=== PATIENT | female | born 1965 | race American Indian/Alaskan Native ===

== ENCOUNTER 2017-03-09 17:28 | Emergency (ER) | payer OTHER ==
[2017-03-09 18:16] LABS: BASO % 0.2 % (0.0-2.0); EOS % 0.1 % (0.0-4.0); HEMATOCRIT 40.8 % (34.0-47.0); LYMPH # 2.2 K/uL (1.0-4.3); LYMPH % 35.6 % (20.0-40.0); MEAN CELL VOLUME 73.6 fL (81.0-99.0); MEAN CORPUSCULAR HEMOGLOBIN 22.7 pg (27.0-31.0); MEAN CORPUSCULAR HGB CONC 30.9 g/dL (33.0-37.0); MONO # 0.4 K/uL (0.0-0.8); MONO % 6.8 % (0.0-10.0); NRBC % 0.1 % (0.0-2.0); RED CELL DISTRIBUTION WIDTH 15.2 % (11.5-14.5); WHITE BLOOD COUNT 6.1 K/uL (4.8-10.8)
[2017-03-09 18:23] LABS: CHLORIDE 97 mmol/L (98-107)
[2017-03-09 18:24] LABS: POTASSIUM 3.5 mmol/L (3.6-5.2); SODIUM 138 mmol/L (132-148)
[2017-03-09 18:26] LABS: ALB/GLOB RATIO 1.3 (1.0-2.1); ALKALINE PHOSPHATASE 91 U/L (38-126); ALT/SGPT 22 U/L (9-52); AST/SGOT 33 U/L (14-36); BILIRUBIN,TOTAL 0.5 mg/dL (0.2-1.3); BLOOD UREA NITROGEN 10 mg/dL (7-17); CARBON DIOXIDE 31 mmol/L (22-30); GFR AFRICAN-AMERICAN > 60
[2017-03-09 18:27] LABS: CALCIUM 9.1 mg/dl (8.6-10.4); GLUCOSE,RANDOM 85 mg/dL (65-105)
[2017-03-09] MEDS ORDERED: Iodixanol 320 MG/ML 100 ML BOTTLE IV ONE (23:10)
[2017-03-10 00:17] VITALS: O2SAT 98
--- NOTE | 2017-03-10 00:24 | C.PDOC ---
History Of Present Illness Pt states that she ran out of her BP medication (Clonidine 0.3mg bid) 3 days ago. Time Seen by Provider: 03/09/17 20:04 Chief Complaint (Nursing): High Blood Pressure History Per: Patient Onset/Duration Of Symptoms: Days (3) Current Symptoms Are (Timing): Worse Associated Symptoms: Headache, Other (Back pain) Severity: Severe Exacerbating Factor(s): Pos: Recently Missed Doses Of Medication, Recent Cocaine Use Additional History Per: Prior Records Past Medical History Reviewed: Historical Data, Nursing Documentation, Vital Signs Vital Signs: Last Vital Signs Temp 98.7 F 03/09/17 17:37 Pulse 68 03/10/17 00:17 Resp 16 03/10/17 00:17 BP 127/79 03/10/17 00:17 Pulse Ox 98 03/10/17 00:25 - Medical History PMH: HTN Family History: States: Unknown Family Hx - Social History Hx Alcohol Use: Yes Hx Substance Use: Yes - Immunization History Hx Tetanus Toxoid Vaccination: No Hx Influenza Vaccination: No Hx Pneumococcal Vaccination: No Review Of Systems Except As Marked, All Systems Reviewed And Found Negative. Constitutional: Negative for: Fever, Weakness Cardiovascular: Negative for: Chest Pain Respiratory: Negative for: Shortness of Breath, Hemoptysis Gastrointestinal: Negative for: Vomiting, Abdominal Pain Musculoskeletal: Positive for: Back Pain. Negative for: Neck Pain Skin: Negative for: Rash Neurological: Positive for: Headache. Negative for: Weakness, Numbness, Seizures Physical Exam - Physical Exam Appears: No Acute Distress Skin: Normal Color, Warm, Dry, No Rash Head: Atraumatic, Normacephalic Eye(s): bilateral: PERRL, EOMI Neck: Normal ROM, Supple Cardiovascular: Rhythm Regular Respiratory: Normal Breath Sounds, No Accessory Muscle Use Gastrointestinal/Abdominal: Soft, No Tenderness Back: No CVA Tenderness Extremity: Normal ROM Neurological/Psych: Oriented x3, Normal Speech, Normal Motor, Normal Sensation ED Course And Treatment - Laboratory Results Result Diagrams: 03/09/17 18:12 03/09/17 18:12 Lab Interpretation: No Acute Changes ECG: Interpreted By Me, Viewed By Me ECG Rhythm: Sinus Rhythm, Nonspecific Changes ECG Interpretation: Abnormal Interpretation Of ECG: LVH Rate From EC O2 Sat by Pulse Oximetry: 98 Pulse Ox Interpretation: Normal - CT Scan/US CT head Other Rad Studies (CT/US): Read By Radiologist, Radiology Report Reviewed CT/US Interpretation: Chronic white matter channges. No acute findings. CT Dissection study Other Rad Studies (CT/US): Read By Radiologist, Radiology Report Reviewed CT/US Interpretation: No acute findings. Progress Note: BP normalized. Symptoms resolved. Reassessment Condition: Improved Disposition Counseled Patient/Family Regarding: Studies Performed, Diagnosis, Need For Followup, Rx Given - Disposition Referrals: Leigha Rouse MD [Staff Provider] - Disposition: HOME/ ROUTINE Disposition Time: 00:47 Condition: IMPROVED Additional Instructions: Avoid any illicit drugs. Follow up with your doctor this week for further evaluation and treatment. Return to the ER if you develop chest pain, shortness of breath, weakness, numbness, worsening of symptoms or if you have any other concerns. Prescriptions: cloNIDine [Catapres] 0.3 mg PO Q12 #60 tab Instructions: Hypertension (ED) - Clinical Impression Clinical Impression: Hypertensive urgency
[2017-03-10 05:52] VITALS: BP 132/87; PULSE 68; RESP 16; TEMP 97.6
--- NOTE | 2017-03-10 09:19 | CT ---
PROCEDURE: CT HEAD WITHOUT CONTRAST. HISTORY: Headache, htn COMPARISON: None available. TECHNIQUE: Axial computed tomography images were obtained through the head/brain without intravenous contrast. Radiation dose: Total exam DLP = 831.52 mGy-cm. This CT exam was performed using one or more of the following dose reduction techniques: Automated exposure control, adjustment of the mA and/or kV according to patient size, and/or use of iterative reconstruction technique. FINDINGS: HEMORRHAGE: No acute parenchymal, subarachnoid or extra-axial hemorrhage BRAIN: There are mild chronic periventricular white matter ischemic changes. There also appear to be scattered vague subcortical white matter ischemic changes as well. The note that the possibility of an acute infarct cannot be excluded if there is any concern, consider followup MRI of the brain provided that there are no contraindications to MRI in this patient. VENTRICLES: No evidence of obstructive hydrocephalus CALVARIUM: Calvarium is intact. Old fracture left lamina papyracea PARANASAL SINUSES: Unremarkable as visualized. No significant inflammatory changes. MASTOID AIR CELLS: Unremarkable as visualized. No inflammatory changes. OTHER FINDINGS: None. IMPRESSION: Mild chronic periventricular white matter ischemic changes. There also appear to be scattered vague subcortical white matter ischemic changes as well. The note that the possibility of an acute infarct cannot be excluded if there is any concern, consider followup MRI of the brain provided that there are no contraindications to MRI in this patient. Old fracture deformity left lamina papyracea
--- NOTE | 2017-03-10 10:54 | CT ---
CT - Dissection study Indication: Back pain, hypertensive, r/o aortic dissection Comparison: None available Technique: Contrast dose: 100 mL Omnipaque 350 Total exam DLP: 417.74 Axial computed tomographic angiogram images of the abdomen and pelvis were performed after bolus administration of intravenous contrast. Sagittal and coronal reformats were generated and reviewed. This CT exam was performed using 1 or more of the falling dose reduction techniques: Automated exposure control, adjustment of the MAA and/or kV according to patient size, and/or use of iterative reconstruction technique. Findings: Included portions of the inferior thyroid gland appear unremarkable. Visualized mediastinal lymph vascular structures appear unremarkable. Heart size appears within normal limits. No significant pericardial effusion. No large central or segmental pulmonary embolus identified. No focal consolidation. No pleural effusion. No pneumothorax. No suspicious pulmonary nodules measuring greater than 5 mm identified. Moderate atherosclerotic calcifications of the aorta and branches. There is normal course and contour of the abdominal aorta and common iliac arteries. The celiac artery origin is widely patent. The superior mesenteric artery origin is widely patent. The inferior mesenteric artery origin is patent. Single renal arteries identified bilaterally, both widely patent. Examination limited due to paucity of intra-abdominal intrapelvic fat. Decompressed gallbladder limits evaluation. The liver, pancreas, spleen, adrenal glands, and gallbladder appear otherwise unremarkable. The kidneys enhance symmetrically without evidence of hydronephrosis or obstructing renal calculi. No enlarged abdominal lymphadenopathy is identified. Lack of oral contrast limits evaluation for bowel pathology. Visualized bowel loops appear within normal limits of caliber without evidence of obstruction. No inflammatory changes are seen in the right lower quadrant to suggest acute appendicitis. No definite free air. The urinary bladder appears unremarkable. The uterus is present. No significant pelvic free fluid is identified. No acute osseous abnormality is identified. Impression: No evidence for aortic dissection or aneurysmal dilatation. No acute findings. Preliminary impression was provided by virtual radiologic.
--- NOTE | 2017-03-10 18:14 | CARD ---
APPROVED REPORT EKG Measurement Heart [id number] <Conclusion> Normal sinus rhythm Possible Left atrial enlargement Left ventricular hypertrophy T wave abnormality, consider anterior ischemia Abnormal ECG
== END 2017-03-10 06:08 | disposition home or self-care (01) ==
LOC: MERGE 17:28 → C.ER 17:28 → EDSEX 17:28 → C.ER 03-10 06:08
DX: I16.0 Hypertensive urgency (principal)
CPT/HCPCS: 70450; 71275; 74175; 80053; 80324; 80345; 80346; 80349; 80353; 80358; 80361; 83992; 84484; 85025; 93005; 99285; Q9967